=== PATIENT | male | born 1965 | race Caucasian/White ===

== ENCOUNTER 2016-11-12 08:35 | Inpatient (IN) | payer OTHER ==
[~2016-11-12] VITALS: Ht 180.3 cm; Wt 111.3 kg
[~2016-11-12 08:35] MED LIST: COZAAR50 MG PO; ONDANSETRON4 M2 PO; POTASSIUM PHOSPHATE PO; PRILOSEC20 MG PO
[2016-11-12 11:50] LABS: BASOPHIL % 0.6 % (0-2); PLATELET COUNT 131 x10^3mcL (130-400); RED CELL DISTRIBUTION WIDTH 12.7 % (11.5-14.5)
[2016-11-12 11:56] LABS: microscopic required? NO
[2016-11-12] MEDS ORDERED: OXYC PO (12:00)
[2016-11-12] MEDS ORDERED: COZAAR100 MG PO (12:00)
[2016-11-12 12:06] LABS: urine erythrocyte NEGATIVE (NEGATIVE)
[2016-11-12 12:07] LABS: CALCIUM 8.9 mg/dL (8.5-10.1); CARBON DIOXIDE 30.3 mmol/L (21-32); CHLORIDE SERUM 103 mmol/L (98-107); CREATININE SERUM 0.9 mg/dL (0.7-1.3); GFR1 > 60 mL/min; GLUCOSE SERUM 113 mg/dL (74-106); POTASSIUM SERUM 4.3 mmol/L (3.5-5.1); SODIUM SERUM 137 mmol/L (136-145)
[2016-11-12 12:12] LABS: ALBUMIN 3.8 g/dL (3.4-5.0); ALKALINE PHOSPHATASE 61 U/L (46-116); ALT/SGPT 43 U/L (16-63); AST/SGOT 33 U/L (15-37); BILIRUBIN TOTAL 0.86 mg/dL (0.20-1.00); CHOLESTEROL 145 mg/dL (<200); CHOLESTEROL/HDL RATIO 4.1; HDL CHOLESTEROL 35 mg/dL (40-60); LIPASE 107 IU/L (73-393); TOTAL PROTEIN, SERUM 7.6 g/dL (6.4-8.2); TRIGLYCERIDES 113 mg/dL (<150)
[2016-11-12 12:18] LABS: AMPHETAMINE QUAL UR NONE DETECTED (NEG <=1000)
[2016-11-12 12:42] VITALS: BP 144/94
[2016-11-12 12:48] VITALS: Ht 180.3 cm; Wt 111.3 kg
[2016-11-12 13:37] LABS: T3 TOTAL 1.57 ng/mL
[2016-11-12 13:52] LABS: MAGNESIUM 2.1 mg/dL (1.8-2.4); PHOSPHOROUS 4.3 mg/dL (2.5-4.9)
[2016-11-12 14:02] LABS: FREE T4 1.26 ng/dL (0.76-1.46)
[2016-11-12 16:27] VITALS: BP 115/74
[2016-11-12 21:02] VITALS: BP 127/78
[2016-11-13 05:50] VITALS: BP 113/65
[2016-11-13 06:15] LABS: RED CELL DISTRIBUTION WIDTH 12.4 % (11.5-14.5)
[2016-11-13 06:26] LABS: CALCIUM 8.8 mg/dL (8.5-10.1); CARBON DIOXIDE 24.3 mmol/L (21-32); CHLORIDE SERUM 102 mmol/L (98-107); CREATININE SERUM 1.1 mg/dL (0.7-1.3); GFR1 > 60 mL/min; GLUCOSE SERUM 196 mg/dL (74-106); POTASSIUM SERUM 4.2 mmol/L (3.5-5.1); SODIUM SERUM 136 mmol/L (136-145)
[2016-11-13 07:06] LABS: BASOPHIL % 0 % (0-2); PLATELET COUNT 126 x10^3mcL (130-400)
[2016-11-13 09:30] VITALS: BP 131/71
[2016-11-13] MEDS ORDERED: ELA25 PO (09:43)
[2016-11-13] MEDS ORDERED: DILAUDID2 MG PO (09:45)
[2016-11-13] MEDS ORDERED: TOR10 PO (09:49)
[2016-11-13 10:55] VITALS: BP 131/71
[2016-11-13 13:29] VITALS: BP 135/90
== END 2016-11-13 14:30 | disposition home or self-care (01) | DRG 552 ==
LOC: ED 08:35 → DU 11:31
PROVIDERS: Specialist; ADMIT Family Medicine
DX: M51.27 Other intervertebral disc displacement, lumbosacral region (principal); I16.0 Hypertensive urgency; R73.03 Prediabetes; B18.2 Chronic viral hepatitis C; F17.210 Nicotine dependence, cigarettes, uncomplicated; I10 Essential (primary) hypertension; Z83.3 Family history of diabetes mellitus; Z80.9 Family history of malignant neoplasm, unspecified
CPT/HCPCS: 82962; 83880; 84439; J1170; J1885; J2405; J2920; J2930; J7030; Q0092; Q0162

== ENCOUNTER 2016-12-18 03:01 | Emergency (ER) | payer OTHER ==
[~2016-12-18 03:01] MED LIST changes: +COZAAR100 MG PO; +DILAUDID2 MG PO; +ELA25 PO; +OXYC PO; +TOR10 PO
[2016-12-18 03:07] VITALS: BP 165/135
== END 2016-12-18 05:06 | disposition home or self-care (01) ==
LOC: ED 03:01
DX: R21 Rash and other nonspecific skin eruption (principal); I10 Essential (primary) hypertension; J45.909 Unspecified asthma, uncomplicated

== ENCOUNTER 2017-07-11 20:38 | Emergency (ER) | payer OTHER ==
[~2017-07-11] VITALS: Ht 180.3 cm; Wt 110.7 kg
[2017-07-11 20:46] VITALS: Ht 180.3 cm; Wt 110.7 kg
[2017-07-11 21:36] LABS: BASOPHIL % 0.5 % (0-2); RED CELL DISTRIBUTION WIDTH 12.1 % (11.5-14.5)
[2017-07-11 21:40] LABS: PLATELET COUNT 129 x10^3mcL (130-400)
[2017-07-11 21:45] LABS: CALCIUM 8.4 mg/dL (8.5-10.1); CARBON DIOXIDE 25.3 mmol/L (21-32); CHLORIDE SERUM 108 mmol/L (98-107); CREATININE SERUM 0.9 mg/dL (0.7-1.3); GFR1 > 60 mL/min; GLUCOSE SERUM 133 mg/dL (74-106); POTASSIUM SERUM 3.6 mmol/L (3.5-5.1); SODIUM SERUM 143 mmol/L (136-145)
[2017-07-11 21:54] LABS: ALBUMIN 3.8 g/dL (3.4-5.0); ALKALINE PHOSPHATASE 85 U/L (46-116); ALT/SGPT 32 U/L (16-63); AST/SGOT 21 U/L (15-37); BILIRUBIN TOTAL 0.6 mg/dL (0.20-1.00); TOTAL PROTEIN, SERUM 7.3 g/dL (6.4-8.2)
[2017-07-11 23:15] VITALS: BP 118/80
== END 2017-07-11 23:15 | disposition home or self-care (01) ==
LOC: ED 20:38
PROVIDERS: Emergency Medicine
DX: R07.89 Other chest pain (principal); J45.909 Unspecified asthma, uncomplicated; I10 Essential (primary) hypertension
CPT/HCPCS: 83880; J1885; Q0092